=== PATIENT | male | born 1970 | race Caucasian/White ===

== ENCOUNTER 2025-05-14 11:15 | Emergency (ER) | payer OTHER ==
[~2025-05-14] VITALS: Ht 177.8 cm; Wt 103.5 kg
[2025-05-14] MEDS ORDERED: DIPHTH,PERTUSS(ACELL),TET VAC 0.5 ML SYRINGE IM ONE (11:30)
[2025-05-14] MEDS ORDERED: LISINOPRIL10 MG PO (11:57)
== END 2025-05-14 12:10 | disposition home or self-care (01) ==
LOC: ED 11:15
DX: S61.012A Laceration without foreign body of left thumb without damage to nail, initial encounter (principal); I10 Essential (primary) hypertension; W26.0XXA Contact with knife, initial encounter
CPT/HCPCS: 12001; 90471; 90715; 99282-25